=== PATIENT | female | born 1980 | race Caucasian/White ===

== ENCOUNTER 2018-01-07 04:13 | Emergency (ER) | payer MEDICARE, OTHER ==
[~2018-01-07] VITALS: Ht 149.9 cm; Wt 68.0 kg
[2018-01-07 04:44] LABS: BASOPHILS % (AUTO) 0.3 % (0.0-2.0); EOSINOPHILS % (AUTO) 2.1 % (1.0-6.0); HEMATOCRIT 40.5 % (36-46); HEMOGLOBIN 13.3 g/dL (12.0-16.0); LYMPHOCYTES % (AUTO) 22.5 % (22.0-44.0); MEAN CORPUSCULAR HEMOGLOBIN 27.3 pg (26.0-34.0); MEAN CORPUSCULAR HGB CONC 32.9 G/dL (31.0-37.0); MEAN CORPUSCULAR VOLUME 83 fL (80-100); MONOCYTES # (AUTO) 0.5 K/uL (0.1-1.0); MONOCYTES % (AUTO) 5.2 % (2.0-9.0); NEUTROPHILS # (AUTO) 6.3 K/uL (1.8-7.7); NEUTROPHILS % (AUTO) 69.9 % (40.0-70.0); PLATELET COUNT (AUTO) 399 K/uL (150-450); RED BLOOD CELL COUNT(AUTO) 4.88 MIL/uL (4.00-5.20); RED CELL DISTRIBUTION WIDTH 14.3 % (11.5-14.5)
[2018-01-07 04:57] LABS: ANION GAP 7 mmol/L (8-16); CALCIUM, TOTAL 9.3 mg/dL (8.8-10.5); CARBON DIOXIDE 30 mmol/L (22-29); CHLORIDE 101 mmol/L (98-107); CREATININE 0.82 mg/dL (0.60-1.30); GLOMERULAR FILTR. RATE CALC > 60 mL/min (>60); GLUCOSE,RANDOM 129 mg/dL (70-110); SODIUM SERUM 138 mmol/L (136-145); UREA NITROGEN, BLOOD 21 mg/dL (7-18)
[2018-01-07 05:02] LABS: ALANINE AMINOTRANSFERASE 38 U/L (12-78); ALBUMIN 3.9 g/dL (3.4-5.0); ALKALINE PHOSPHATASE 62 U/L (46-116); ASPARTATE AMINOTRANSFERASE 20 U/L (15-37); BILIRUBIN,TOTAL 0.2 mg/dL (0.1-1.0); LIPASE 241 U/L (73-393); TOTAL PROTEIN, SERUM 8.1 g/dL (6.4-8.2)
[2018-01-07 05:32] LABS: BILIRUBIN,URINE NEGATIVE (NEGATIVE); GLUCOSE, URINE (UA) NEGATIVE (NEGATIVE); KETONES,URINE NEGATIVE (NEGATIVE); LEUKOCYTE ESTERASE ,URINE LARGE (NEGATIVE); NITRATE,URINE NEGATIVE (NEGATIVE); OCCULT BLOOD,URINE TRACE (NEGATIVE); PROTEIN,URINE NEGATIVE (NEGATIVE); UROBILINOGEN,URINE 0.2 mg/dL (<=1.0)
[2018-01-07 05:35] LABS: APPEARANCE,URINE HAZY (CLEAR)
[2018-01-07 05:56] LABS: BACTERIA,URINE Rare /HPF (None Seen); SQUAMOUS EPITHELIAL CELL,UR Few /LPF (None Seen)
[2018-01-07] MEDS ORDERED: ONDANSETRON HCL 4 MG TABLET PO ONE (06:30)
[2018-01-07 08:02] VITALS: BP 123/69
== END 2018-01-07 08:38 | disposition other institution (70) ==
LOC: EMS 04:14
DX: N39.0 Urinary tract infection, site not specified (principal)
CPT/HCPCS: 36415; 74022; 80053; 81001; 83690; 84703; 85025; 87086; 99285; Q0162

== ENCOUNTER 2018-06-07 00:47 | Emergency (ER) | payer MEDICARE, OTHER ==
[~2018-06-07] VITALS: Ht 149.9 cm; Wt 66.4 kg
[2018-06-07 01:19] LABS: BASOPHILS % (AUTO) 0.4 % (0.0-2.0); HEMATOCRIT 40.7 % (36-46); HEMOGLOBIN 13.4 g/dL (12.0-16.0); LYMPHOCYTES # (AUTO) 2.3 K/uL (1.0-4.8); MEAN CORPUSCULAR HEMOGLOBIN 27.6 pg (26.0-34.0); MEAN CORPUSCULAR VOLUME 84 fL (80-100); MONOCYTES # (AUTO) 0.6 K/uL (0.1-1.0); MONOCYTES % (AUTO) 6.3 % (2.0-9.0); NEUTROPHILS # (AUTO) 5.8 K/uL (1.8-7.7); NEUTROPHILS % (AUTO) 65.3 % (40.0-70.0); PLATELET COUNT (AUTO) 337 K/uL (150-450); RED BLOOD CELL COUNT(AUTO) 4.86 MIL/uL (4.00-5.20); RED CELL DISTRIBUTION WIDTH 13.6 % (11.5-14.5)
[2018-06-07 01:28] LABS: ANION GAP 7 mmol/L (8-16); CALCIUM, TOTAL 9.4 mg/dL (8.8-10.5); CARBON DIOXIDE 30 mmol/L (22-29); CHLORIDE 102 mmol/L (98-107); CREATININE 0.99 mg/dL (0.60-1.30); GLOMERULAR FILTR. RATE CALC > 60 mL/min (>60); GLUCOSE,RANDOM 112 mg/dL (70-110); POTASSIUM 4.5 mmol/L (3.5-5.1); SODIUM SERUM 139 mmol/L (136-145); UREA NITROGEN, BLOOD 20 mg/dL (7-18)
[2018-06-07] MEDS ORDERED: ONDANSETRON HCL 4 MG/2 ML VIAL IVP ONE (01:30)
[2018-06-07] MEDS ORDERED: MAG HYDROX/AL HYDROX/SIMETH ES 30 ML SUSPENSION UDCUP PO ONE (01:30)
[2018-06-07] MEDS ORDERED: KETOROLAC TROMETHAMINE 30 MG/ML VIAL IVP ONE (01:30)
[2018-06-07 01:34] LABS: ALANINE AMINOTRANSFERASE 34 U/L (12-78); ALBUMIN 3.7 g/dL (3.4-5.0); ALKALINE PHOSPHATASE 65 U/L (46-116); ASPARTATE AMINOTRANSFERASE 17 U/L (15-37); BILIRUBIN,TOTAL 0.2 mg/dL (0.1-1.0); LIPASE 283 U/L (73-393); TOTAL PROTEIN, SERUM 7.9 g/dL (6.4-8.2)
[2018-06-07 01:37] LABS: APPEARANCE,URINE CLEAR (CLEAR); BILIRUBIN,URINE NEGATIVE (NEGATIVE); GLUCOSE, URINE (UA) NEGATIVE (NEGATIVE); KETONES,URINE NEGATIVE (NEGATIVE); LEUKOCYTE ESTERASE ,URINE TRACE (NEGATIVE); NITRATE,URINE NEGATIVE (NEGATIVE); OCCULT BLOOD,URINE NEGATIVE (NEGATIVE); PH,URINE 6.5 (5.0-8.0); PROTEIN,URINE NEGATIVE (NEGATIVE); UROBILINOGEN,URINE 0.2 mg/dL (<=1.0)
[2018-06-07 02:07] LABS: BACTERIA,URINE Few /HPF (None Seen); RBC,URINE 0-2 /HPF (0-2); SQUAMOUS EPITHELIAL CELL,UR Few /LPF (None Seen)
[2018-06-07 02:49] VITALS: BP 127/76
== END 2018-06-07 03:07 | disposition home or self-care (01) ==
LOC: EMS 00:48
DX: K80.70 Calculus of gallbladder and bile duct without cholecystitis without obstruction (principal)
CPT/HCPCS: 36415; 71045; 76700; 80053; 81001; 83690; 84703; 85025; 96374; 96375; 99285; J1885; J2405

== ENCOUNTER 2020-04-01 12:24 | Emergency (ER) | payer MEDICARE, OTHER ==
[~2020-04-01] VITALS: Ht 162.6 cm; Wt 72.7 kg
[2020-04-01 13:53] LABS: BASOPHILS % (AUTO) 0.1 % (0.0-2.0); EOSINOPHILS % (AUTO) 0 % (1.0-6.0); HEMATOCRIT 41.7 % (36-46); HEMOGLOBIN 13.8 g/dL (12.0-16.0); LYMPHOCYTES # (AUTO) 0.3 K/uL (1.0-4.8); LYMPHOCYTES % (AUTO) 2.6 % (22.0-44.0); MEAN CORPUSCULAR HEMOGLOBIN 27.8 pg (26.0-34.0); MEAN CORPUSCULAR HGB CONC 33.1 G/dL (31.0-37.0); MEAN CORPUSCULAR VOLUME 84 fL (80-100); MONOCYTES # (AUTO) 0.2 K/uL (0.1-1.0); MONOCYTES % (AUTO) 1.9 % (2.0-9.0); NEUTROPHILS # (AUTO) 9.4 K/uL (1.8-7.7); PLATELET COUNT (AUTO) 326 K/uL (150-450); RED BLOOD CELL COUNT(AUTO) 4.96 MIL/uL (4.00-5.20)
[2020-04-01 13:59] LABS: NEUTROPHILS % (AUTO) 95.4 % (40.0-70.0)
[2020-04-01 14:05] LABS: ANION GAP 9 mmol/L (8-16); CALCIUM, TOTAL 9.3 mg/dL (8.8-10.5); CARBON DIOXIDE 24 mmol/L (22-29); CHLORIDE 104 mmol/L (98-107); CREATININE 0.79 mg/dL (0.60-1.30); GLOMERULAR FILTR. RATE CALC > 60 mL/min (>60); GLUCOSE,RANDOM 127 mg/dL (70-110); POTASSIUM 4.2 mmol/L (3.5-5.1); SODIUM SERUM 137 mmol/L (136-145); UREA NITROGEN, BLOOD 17 mg/dL (7-18)
[2020-04-01 14:16] LABS: ALANINE AMINOTRANSFERASE 85 U/L (12-78); ALBUMIN 4.2 g/dL (3.4-5.0); ALKALINE PHOSPHATASE 64 U/L (46-116); ASPARTATE AMINOTRANSFERASE 43 U/L (15-37); BILIRUBIN,TOTAL 0.5 mg/dL (0.1-1.0); HCG,QUANTITATIVE < 1 mIU/mL (0-6); TOTAL PROTEIN, SERUM 8.7 g/dL (6.4-8.2)
[2020-04-01 15:49] LABS: APPEARANCE,URINE CLOUDY (CLEAR); GLUCOSE, URINE (UA) NEGATIVE (NEGATIVE); KETONES,URINE TRACE mg/dL (NEGATIVE); LEUKOCYTE ESTERASE ,URINE NEGATIVE (NEGATIVE); NITRATE,URINE NEGATIVE (NEGATIVE); OCCULT BLOOD,URINE LARGE (NEGATIVE); PROTEIN,URINE POS 1+ (NEGATIVE); UROBILINOGEN,URINE 0.2 mg/dL (<=1.0)
[2020-04-01 15:52] LABS: BILIRUBIN,URINE PRELIM. POSITIVE (NEGATIVE)
[2020-04-01 15:56] LABS: BACTERIA,URINE Moderate /HPF (None Seen); RBC,URINE 0-2 /HPF (0-2)
[2020-04-01 15:57] LABS: SQUAMOUS EPITHELIAL CELL,UR Few /LPF (None Seen)
[2020-04-01 16:27] VITALS: BP 118/81
== END 2020-04-01 16:37 | disposition home or self-care (01) ==
LOC: EMS 12:28
DX: R19.7 Diarrhea, unspecified (principal); R11.0 Nausea; R74.0 Nonspecific elevation of levels of transaminase and lactic acid dehydrogenase [LDH]; R50.9 Fever, unspecified
CPT/HCPCS: 87086